=== PATIENT | female | born 1930 | race Caucasian/White ===

== ENCOUNTER → 2017-06-29 | Outpatient (CLI) | payer MEDICARE, OTHER | END | disposition home or self-care (01) | LOC: RAD 11:00 | DX: M25.562 Pain in left knee (principal); M11.20 Other chondrocalcinosis, unspecified site; M17.12 Unilateral primary osteoarthritis, left knee | CPT/HCPCS: 73562 ==

== ENCOUNTER 2017-09-23 16:45 | Outpatient (CLI) | payer MEDICARE, OTHER | END 2017-09-24 | disposition home or self-care (01) | LOC: U/S 16:45 | DX: N39.0 Urinary tract infection, site not specified (principal) | CPT/HCPCS: 76856 ==